=== PATIENT | female | born 2000 | race African-American/Black ===

== ENCOUNTER 2025-01-03 14:47 | Emergency (ER) | payer BC ==
[~2025-01-03] VITALS: Ht 167.6 cm; Wt 60.0 kg
[2025-01-03 14:52] VITALS: TEMP 36.7; O2SAT 100
[2025-01-03 15:44] VITALS: BP 118/68; PULSE 105; RESP 18
[2025-01-03] MEDS: ONDANSETRON 4MG ODT PO STA (15:44)
[2025-01-03] MEDS: MORPHINE SULFATE 4 MG/ML INJ (FOR IV/IM USE) IV STA (15:44)
[2025-01-03] MEDS ORDERED: PROMETHAZINE HCL 25MG TABLET PO PRN (16:00)
[2025-01-03 16:52] LABS: BASOPHILS % 0.2 % (0.0-2.0); EOSINOPHILS % 0.8 % (0.0-5.0); HEMATOCRIT. 42.8 % (36.0-48.0); HEMOGLOBIN. 14.1 g/dL (12.0-16.0); LYMPHOCYTES % 7.2 % (20.0-50.0); MEAN CORPUSCULAR HEMOGLOBIN 29.9 pg (28.0-32.0); MEAN CORPUSCULAR HGB CONC 32.9 g/dL (31.0-37.0); MEAN CORPUSCULAR VOLUME 90.8 fL (81.0-99.0); MEAN PLATELET VOLUME 7.9 fl (7.4-10.4); MONOCYTES % 7.5 % (2.0-8.0); NEUTROPHILS % 84.3 % (40.0-76.0); PLATELET 382 x1000/uL (130-400); RED BLOOD CELL COUNT 4.72 mill/uL (4.2-5.4); RED CELL DISTRIBUTION WIDTH 15.4 % (11.6-14.6); WHITE BLOOD COUNT 16.9 x1000/uL (4.5-11.0)
[2025-01-03 16:59] LABS: CHLORIDE 103 mEq/L (98-107); POTASSIUM 3.2 mEq/L (3.5-5.1)
[2025-01-03 17:00] LABS: CARBON DIOXIDE 23 mEq/L (21-32); SODIUM 137 mEq/L (136-145)
[2025-01-03 17:02] LABS: PROTHROMBIN TIME 11.2 sec (9.6-11.0)
[2025-01-03 17:06] LABS: CREATININE 0.8 mg/dL (0.6-1.0); GLUCOSE 92 mg/dL (70-105); UREA NITROGEN BLOOD 8 mg/dL (9-23)
[2025-01-03 17:10] LABS: HCG SCREEN NEGATIVE
== END 2025-01-03 15:50 | disposition left against medical advice (07) ==
LOC: ER 14:47
DX: R11.2 Nausea with vomiting, unspecified (principal); Z79.899 Other long term (current) drug therapy
CPT/HCPCS: 99283; 96374; 80048; 84703; 83690; 85025; 85610; 36415; J2270; Q0162